=== PATIENT | female | born 1995 | race Caucasian/White ===

== ENCOUNTER 2016-10-16 11:50 | Emergency (ER) | payer OTHER ==
[2016-10-16 12:02] VITALS: BP 112/73
--- NOTE | 2016-10-16 12:25 | EDM.PDOC ---
ED HPI GENERAL MEDICAL PROBLEM - General Chief Complaint: Genitourinary Problem Stated Complaint: BLOOD IN URINE Time Seen by Provider: 10/16/16 12:09 Source of Information: Reports: Patient History Limitations: Reports: No Limitations - History of Present Illness INITIAL COMMENTS - FREE TEXT/NARRATIVE: 21-year-old female presents for evaluation treatment of urinary tract infection symptoms. Patient reports that she first started experiencing dysuria on Monday. She states that she tried to drink fluids to get rid of her symptoms but they have steadily worsened. She reports that the dysuria is mostly present in the morning. She reports today that she became concerned when she noticed blood in her urine. She denies any increased urinary frequency, incontinence, back pain, flank pain, fevers, chills, nausea or vomiting. She is having some suprapubic tenderness which started today. Last menstrual period was the beginning of September. Abdomen Pain Score (Numeric/FACES): 4 - Related Data Allergies Allergy/AdvReac Type Severity Reaction Status Date / Time No Known Allergies Allergy Verified 10/16/16 12:02 Home Meds: Home Meds Nitrofurantoin [place]/Macrocryst [Macrobid] 100 mg PO BID #14 cap 10/16/16 [Rx] Phenazopyridine [Pyridium] 100 mg PO TID #9 tablet 10/16/16 [Rx] Past Medical History - Past Health History Medical/Surgical History: Denies Medical/Surgical History Social & Family History - Tobacco Use Smoking Status *Q: Never Smoker - Caffeine Use Caffeine Use: Reports: None - Recreational Drug Use Recreational Drug Use: No ED ROS GENERAL - Review of Systems Review Of Systems: See Below Constitutional: Denies: Fever, Chills GI/Abdominal: Reports: Abdominal Pain (suprapubic). Denies: Nausea, Vomiting : Reports: Dysuria, Hematuria. Denies: Flank Pain, Frequency, Incontinence Musculoskeletal: Denies: Back Pain ED EXAM, RENAL/ - Physical Exam Exam: See Below Exam Limited By: No Limitations General Appearance: Alert, WD/WN, No Apparent Distress Respiratory/Chest: No Respiratory Distress, Lungs Clear, Normal Breath Sounds Cardiovascular: Normal Peripheral Pulses, Regular Rate, Rhythm, No Murmur GI/Abdominal: Soft, Non-Tender, Other (mild tenderness to palpation to the suprapubic area) (Female) Exam: Other (urine sample sitting on counter is dark pink) Back Exam: No: CVA Tenderness (L), CVA Tenderness (R) Neurological: Alert, Oriented, Normal Cognition Psychiatric: Normal Affect, Normal Mood Skin Exam: Warm, Dry, Normal Color Course - Vital Signs Last Recorded V/S: Last Vital Signs Temp 37.0 C 10/16/16 12:00 Pulse 73 10/16/16 12:00 Resp 16 10/16/16 12:00 BP 112/73 10/16/16 12:00 Pulse Ox 100 10/16/16 12:00 - Orders/Labs/Meds Labs: Laboratory Tests 10/16/16 Range/Units 12:20 Urine Color Red H (Yellow) Urine Appearance Cloudy H (Clear) Urine pH 7.0 (5.0-8.0) Ur Specific [place] 1.020 (1.005-1.030) Urine Protein 2+ H (Negative) Urine Glucose (UA) Negative (Negative) Urine Ketones Negative (Negative) Urine Occult Blood 3+ H (Negative) Urine Nitrite Positive H (Negative) Urine Bilirubin 1+ H (Negative) Urine Urobilinogen 1.0 (0.2-1.0) Ur Leukocyte Esterase 3+ H (Negative) Urine RBC Too numerous to cnt H (0-5) /hpf Urine WBC 10-20 H (0-5) /hpf Ur Epithelial Cells 0-5 (0-5) /hpf Urine Bacteria Moderate H (FEW) /hpf Urine Mucus Few (FEW) /hpf - Re-Assessments/Exams Free Text/Narrative Re-Assessment/Exam: 10/16/16 12:53 UA returned with 2+ protein, 3+ blood, positive nitrates and 3+ leukocytes. Urine has been sent for culture. Reviewed the UA results with the patient. Discharge instructions as documented Departure - Departure Time of Disposition: 12:53 Disposition: Home, Self-Care 01 Condition: Good Clinical Impression: UTI, Urinary tract infectious disease - Discharge Information Prescriptions: Nitrofurantoin [place]/Macrocryst [Macrobid] 100 mg PO BID #14 cap Phenazopyridine [Pyridium] 100 mg PO TID #9 tablet Referrals: Carolyn Phoenix MD [Primary Care Provider] - Forms: ED Department Discharge Additional Instructions: Take the pyridium as prescribed. 1 cap 3 times a day for 3 days. This medication is for the dysuria. Macrobid 1 tab twice a day for 7 days. Urine has been sent for culture. We will notify you only if you require change of antibiotics. make sure you are drinking plenty of fluids. [id number] Tylenol or Motrin as needed for additional symptom relief. Follow up with your primary care provider as needed. Return to the ER if your symptoms change or worsen.
== END 2016-10-16 12:58 | disposition home or self-care (01) ==
LOC: JD.ED 11:50
DX: N39.0 Urinary tract infection, site not specified (principal)
CPT/HCPCS: 81001; 87086; 99283